=== PATIENT | male | born 1945 | race African-American/Black ===

== ENCOUNTER 2022-05-14 21:58 | Observation (INO) ==
[2022-05-14] MEDS ORDERED: SODIUM CHLORIDE 0.9% 1,000 ML IV STA (22:26)
[2022-05-15] MEDS ORDERED: cefTRIAXone 1,000 MG in SODIUM CHLORIDE 0.9% 100 ML IV STA (00:03)
[2022-05-15 00:28] LABS: Alanine Aminotransferase 16 U/L (16-61); Albumin 2.8 G/DL (3.4-5.0); Alkaline Phosphatase 127 U/L (45-117); Aspartate Amino Transferase 26 U/L (0-37); Bilirubin,Total < 0.39 MG/DL (0.20-1.00); Blood Urea Nitrogen 24 MG/DL (7-18); Calcium 8.7 MG/DL (8.5-10.1); Carbon Dioxide 23 MMOL/L (21-32); Chloride 115 MMOL/L (98-107); Glucose 144 MG/DL (74-106); Osmolality,Calculated 289.1 MOS/KG (273-304); Potassium 5.4 MMOL/L (3.5-5.1); Sodium 142 MMOL/L (136-145); Total Protein 6.6 G/DL (6.4-8.2)
[2022-05-15 00:48] LABS: Basophils % 0.5 % (0.0-0.8); Eosinophils # 0.2 10*3/uL (0.0-0.87); Eosinophils % 2.4 % (0.00-10.9); Hematocrit 30.1 VOL% (42.0-52.0); Hemoglobin 9.7 GM/DL (14.0-18.0); Immature Granulocytes % 0.2 %; Immature Granulocytes Absolute 0.01 #; Lymphocytes % 32.4 % (21.2-54.2); Mean Corpuscular HGB Conc 32.2 GM/DL (32-36); Mean Corpuscular Volume 91.2 FL (87-102); Mean Platelet Volume 10.1 FL (9.6-12.0); Monocytes # 0.4 10*3/uL (0.11-0.8); Monocytes % 6.8 % (1.7-12.7); Neutrophils % 57.7 % (38.7-73.9); Platelet Count 198 T/CUMM (130-400); Red Cell Distribution Width 13.2 % (9.3-17.3); White Blood Count 6.2 T/CUMM (4-12)
[2022-05-15 01:00] LABS: INR 1.1; PT Patient Result 11.7 SECS (10.1-12.1); Partial Thromboplastin Time 32.5 SECS (23.7-32.9)
[2022-05-15 01:10] LABS: Hyaline Casts,Urine 1 /LPF (0-3); RBC,Urine 1 /HPF (0-4)
[2022-05-15 01:11] LABS: Urine Appearance Clear (Clear); Urine Color Yellow (Yellow)
[2022-05-15 01:12] LABS: Bilirubin,Urine Negative (Negative); Blood, Urine Trace mg/dL (Negative); Glucose,Urine (UA) Negative (Negative); Ketones,Urine Negative (Negative); Nitrite,Urine Negative (Negative); Protein,Urine 100 mg/dL (Negative); Urine Specific Gravity 1.025 (1.001-1.035); Urine pH 5.5 (4.5-8.0)
[2022-05-15] MEDS ORDERED: ONDANSETRON 4 MG/2 ML VIAL IV PRN (02:16)
[2022-05-15] MEDS ORDERED: ACETAMINOPHEN 325 MG TABLET PO PRN (02:16)
[2022-05-15] MEDS ORDERED: ALUMINUM/MAGNES/SIMETH MAX STR 30 ML UDCUP PO PRN (02:16)
[2022-05-15] MEDS ORDERED: MAGNESIUM SULF RIDER 4 GM/100 ML PREMIX IV PRN (02:16)
[2022-05-15] MEDS ORDERED: MAGNESIUM SULF RIDER 2 GM/50 ML PREMIX IV PRN (02:16)
[2022-05-15] MEDS ORDERED: hydrALAZINE 20 MG/1 ML VIAL IV PRN (02:16)
[2022-05-15] MEDS ORDERED: GLUCAGON 1 MG VIAL IM PRN (02:27)
[2022-05-15] MEDS ORDERED: SODIUM POLYSTYRENE SULFATE 15 GM/60 ML BOTTLE PO STA (02:27)
[2022-05-15] MEDS ORDERED: MONTELUKAST 10 MG TABLET PO PRN (02:28)
[2022-05-15] MEDS ORDERED: traMADol 50 MG TABLET PO PRN (02:28)
[2022-05-15] MEDS ORDERED: DEXTROSE 10% 250 ML BAG IV PRN (02:31)
[2022-05-15] MEDS ORDERED: METOPROLOL TARTRATE 5 MG/5 ML VIAL IV STA (02:44)
[2022-05-15] MEDS ORDERED: SODIUM POLYSTYRENE SULFATE 15 GM/60 ML BOTTLE PO ONE (03:00)
[2022-05-15] MEDS ORDERED: SODIUM POLYSTYRENE SULFATE 15 GM/60 ML BOTTLE RECTAL STA (03:11)
[2022-05-15] MEDS: AZITHROMYCIN INJ 500 MG in SODIUM CHLORIDE 0.9% 250 ML IV SCH (05:04)
[2022-05-15 05:15] LABS: Basophils % 0.7 % (0.0-0.8); Eosinophils # 0.1 10*3/uL (0.0-0.87); Eosinophils % 2.4 % (0.00-10.9); Hematocrit 29.9 VOL% (42.0-52.0); Hemoglobin 9.6 GM/DL (14.0-18.0); Immature Granulocytes % 0.5 %; Immature Granulocytes Absolute 0.02 #; Lymphocytes # 1.5 10*3/uL (1.4-4.0); Lymphocytes % 34.4 % (21.2-54.2); Mean Corpuscular HGB Conc 32.1 GM/DL (32-36); Mean Corpuscular Volume 91.2 FL (87-102); Mean Platelet Volume 9.4 FL (9.6-12.0); Monocytes # 0.4 10*3/uL (0.11-0.8); Monocytes % 8.5 % (1.7-12.7); Neutrophils % 53.5 % (38.7-73.9); Platelet Count 143 T/CUMM (130-400); Red Blood Count 3.28 MC/CUMM (3.8-5.5); Red Cell Distribution Width 13.2 % (9.3-17.3); White Blood Count 4.3 T/CUMM (4-12)
[2022-05-15 05:46] LABS: Calcium 8.7 MG/DL (8.5-10.1); Osmolality,Calculated 286.1 MOS/KG (273-304); Thyroid Stimulating Hormone 1.82 uIU/ml (0.358-3.74)
[2022-05-15] MEDS: INSULIN REGULAR 100 UNIT/ML SUBCUT SCH ×4 (07:42→20:54)
[2022-05-15] MEDS: ALBUTEROL/IPRATROPIUM 3 ML NEB RESP TX SCH ×3 (07:50→19:26)
[2022-05-15] MEDS ORDERED: ENOXAPARIN 40 MG/0.4 ML SYRINGE SUBCUT SCH (09:00)
[2022-05-15] MEDS: MULTIVITAMIN (CENTRUM) TABLET PO SCH (09:24)
[2022-05-15] MEDS: DOCUSATE SODIUM 100 MG CAPSULE PO SCH ×2 (09:24→20:54)
[2022-05-15] MEDS: APIXABAN 5 MG TABLET PO SCH ×2 (09:24→20:54)
[2022-05-15] MEDS: ASPIRIN CHEW 81 MG TABLET PO SCH (09:24)
[2022-05-15] MEDS: PANTOPRAZOLE 40 MG TABLET PO SCH (09:24)
[2022-05-15] MEDS: guaiFENesin/DM ER 600-30 MG TABLET PO SCH ×2 (09:24→20:55)
[2022-05-15] MEDS: METOPROLOL TARTRATE 25 MG TABLET PO SCH ×2 (10:16→20:54)
[2022-05-15] MEDS: amLODIPine 5 MG TABLET PO SCH (10:16)
[2022-05-15] MEDS: VALSARTAN 80 MG TABLET PO SCH (10:16)
[2022-05-15] MEDS ORDERED: MAGNESIUM SULF RIDER 2 GM/50 ML PREMIX IV ONE (13:03)
[2022-05-15 14:46] LABS: Basophils % 0.4 % (0.0-0.8); Eosinophils # 0.1 10*3/uL (0.0-0.87); Eosinophils % 1.3 % (0.00-10.9); Hematocrit 30.3 VOL% (42.0-52.0); Hemoglobin 9.8 GM/DL (14.0-18.0); Immature Granulocytes % 0.2 %; Immature Granulocytes Absolute 0.01 #; Lymphocytes # 1.5 10*3/uL (1.4-4.0); Lymphocytes % 26.7 % (21.2-54.2); Mean Corpuscular HGB Conc 32.3 GM/DL (32-36); Mean Corpuscular Volume 90.7 FL (87-102); Mean Platelet Volume 9.6 FL (9.6-12.0); Monocytes # 0.4 10*3/uL (0.11-0.8); Monocytes % 7.2 % (1.7-12.7); Neutrophils % 64.2 % (38.7-73.9); Platelet Count 171 T/CUMM (130-400); Red Blood Count 3.34 MC/CUMM (3.8-5.5); Red Cell Distribution Width 13.2 % (9.3-17.3); White Blood Count 5.4 T/CUMM (4-12)
[2022-05-15] MEDS: INSULIN GLARGINE 100 UNIT/ML SUBCUT SCH (20:54)
[2022-05-15] MEDS: TAMSULOSIN 0.4 MG CAPSULE PO SCH (20:54)
[2022-05-15] MEDS: SIMVASTATIN 10 MG TABLET PO SCH (20:55)
[2022-05-16] MEDS: ALBUTEROL/IPRATROPIUM 3 ML NEB RESP TX SCH ×4 (00:55→20:36)
[2022-05-16] MEDS: cefTRIAXone 1,000 MG in SODIUM CHLORIDE 0.9% 100 ML IV SCH (01:40)
[2022-05-16] MEDS: AZITHROMYCIN INJ 500 MG in SODIUM CHLORIDE 0.9% 250 ML IV SCH (02:33)
[2022-05-16 05:14] LABS: Calcium 8.5 MG/DL (8.5-10.1); Potassium 4.1 MMOL/L (3.5-5.1)
[2022-05-16 05:16] LABS: % Iron Saturation 14.5 % (18-50)
[2022-05-16 05:21] LABS: Folate 16.24 NG/ML (5.38-24.0)
[2022-05-16] MEDS: PANTOPRAZOLE 40 MG TABLET PO SCH (09:10)
[2022-05-16] MEDS: APIXABAN 5 MG TABLET PO SCH ×2 (09:11→21:26)
[2022-05-16] MEDS: VALSARTAN 80 MG TABLET PO SCH (09:11)
[2022-05-16] MEDS: MULTIVITAMIN (CENTRUM) TABLET PO SCH (09:11)
[2022-05-16] MEDS: ASPIRIN CHEW 81 MG TABLET PO SCH (09:11)
[2022-05-16] MEDS: METOPROLOL TARTRATE 25 MG TABLET PO SCH (09:11)
[2022-05-16] MEDS: amLODIPine 5 MG TABLET PO SCH (09:11)
[2022-05-16] MEDS: DOCUSATE SODIUM 100 MG CAPSULE PO SCH ×2 (09:11→21:26)
[2022-05-16] MEDS: guaiFENesin/DM ER 600-30 MG TABLET PO SCH ×2 (09:13→21:24)
[2022-05-16] MEDS: INSULIN REGULAR 100 UNIT/ML SUBCUT SCH ×4 (09:31→21:23)
[2022-05-16] MEDS ORDERED: FERRIC GLUCONATE COMPLEX 125 MG in SODIUM CHLORIDE 0.9% 100 ML IV ONE (14:00)
[2022-05-16] MEDS: CHOLECALCIFEROL 5,000 UNIT TABLET PO SCH (14:42)
[2022-05-16] MEDS: INSULIN GLARGINE 100 UNIT/ML SUBCUT SCH (21:23)
[2022-05-16] MEDS: TAMSULOSIN 0.4 MG CAPSULE PO SCH (21:26)
[2022-05-16] MEDS: METOPROLOL TARTRATE 50 MG TABLET PO SCH (21:26)
[2022-05-16] MEDS: SIMVASTATIN 10 MG TABLET PO SCH (21:27)
[2022-05-17] MEDS: ALBUTEROL/IPRATROPIUM 3 ML NEB RESP TX SCH ×3 (00:09→13:08)
[2022-05-17 05:26] LABS: Calcium 8.5 MG/DL (8.5-10.1); Osmolality,Calculated 287.1 MOS/KG (273-304); Potassium 4.3 MMOL/L (3.5-5.1); Risk Ratio 2.35; VLDL Cholesterol 9.6 MG/DL
[2022-05-17 05:51] LABS: Basophils % 0.4 % (0.0-0.8); Eosinophils # 0.1 10*3/uL (0.0-0.87); Eosinophils % 2.2 % (0.00-10.9); Hematocrit 26.9 VOL% (42.0-52.0); Hemoglobin 8.6 GM/DL (14.0-18.0); Immature Granulocytes % 0.4 %; Immature Granulocytes Absolute 0.02 #; Lymphocytes # 1.6 10*3/uL (1.4-4.0); Lymphocytes % 30.6 % (21.2-54.2); Mean Corpuscular Volume 90.9 FL (87-102); Mean Platelet Volume 9.8 FL (9.6-12.0); Monocytes # 0.4 10*3/uL (0.11-0.8); Neutrophils % 58.4 % (38.7-73.9); Platelet Count 158 T/CUMM (130-400); Red Blood Count 2.96 MC/CUMM (3.8-5.5); Red Cell Distribution Width 13.2 % (9.3-17.3); White Blood Count 5.1 T/CUMM (4-12)
[2022-05-17] MEDS ORDERED: FERROUS SULFATE 325 MG TABLET PO SCH (09:00)
[2022-05-17] MEDS: cefTRIAXone 1,000 MG in SODIUM CHLORIDE 0.9% 100 ML IV SCH (10:47)
[2022-05-17] MEDS: PANTOPRAZOLE 40 MG TABLET PO SCH (10:48)
[2022-05-17] MEDS: guaiFENesin/DM ER 600-30 MG TABLET PO SCH (10:48)
[2022-05-17] MEDS: ASPIRIN CHEW 81 MG TABLET PO SCH (10:48)
[2022-05-17] MEDS: APIXABAN 5 MG TABLET PO SCH (10:48)
[2022-05-17] MEDS: DOCUSATE SODIUM 100 MG CAPSULE PO SCH (10:48)
[2022-05-17] MEDS: amLODIPine 5 MG TABLET PO SCH (10:49)
[2022-05-17] MEDS: MULTIVITAMIN (CENTRUM) TABLET PO SCH (10:49)
[2022-05-17] MEDS: CHOLECALCIFEROL 5,000 UNIT TABLET PO SCH (10:49)
[2022-05-17] MEDS: AZITHROMYCIN INJ 500 MG in SODIUM CHLORIDE 0.9% 250 ML IV SCH (10:49)
[2022-05-17] MEDS: METOPROLOL TARTRATE 50 MG TABLET PO SCH (10:52)
[2022-05-17] MEDS ORDERED: VALSARTAN 160 MG TABLET PO SCH (11:00)
[2022-05-17] MEDS: VALSARTAN 80 MG TABLET PO SCH (11:13)
[2022-05-17] MEDS: INSULIN REGULAR 100 UNIT/ML SUBCUT SCH ×3 (11:13→18:06)
[2022-05-17] MEDS ORDERED: LACTULOSE 20 GM/30 ML UDCUP PO ONE (13:00)
[2022-05-17] MEDS ORDERED: FUROSEMIDE 40 MG/4 ML VIAL IV ONE (13:00)
[2022-05-17 16:23] VITALS: BP 120/69
[2022-05-18 13:01] LABS: Mycoplasma pneumoniae Ab Inter SEE COMMENTS; Mycoplasma pneumoniae Ab, IgG Positive (Negative); Mycoplasma pneumoniae Ab, IgM Negative (Negative)
== END 2022-05-17 18:07 ==
LOC: N.ED 21:58 → N.EDINP 21:58 → N.5E 05-15 15:16
PROVIDERS: ADMIT Internal Medicine; ATTEND Internal Medicine